=== PATIENT | male | born 1965 | race Caucasian/White ===

== ENCOUNTER → 2024-05-17 08:36 | Outpatient (CLI) | payer OTHER, SELFPAY ==
--- NOTE | 2024-05-17 08:40 | DI.RAD.S_ITS ---
PROCEDURE: XR LUMBAR SPINE MIN 4V INDICATIONS: BACK PAIN TECHNIQUE: 5 views of the lumbar spine acquired, including flexion and extension views. COMPARISON: None. FINDINGS: Lumbar spine curvature and alignment: Grade 1-2 L5-S1 spondylisthesis likely due to chronic spondylitic defects appreciated. There is approximately 1 cm of L5 anterior subluxation. Slight rightward curve lower thoracic and upper lumbar spine appreciated. Bones: Probable L5-S1 spondylolytic defects. They are very poorly visualized. Disc spaces: Mild L2-3 minimal L3-4 L4-5 and moderate L5-S1 degenerative disc disease noted. There is moderate L4-5 and severe L5-S1 degenerative facet disease. Soft tissues: No soft tissue swelling, calcification or mass. IMPRESSION: Grade 1-2 L5-S1 spondylolisthesis with probable spondylitic defects. If this requires precise diagnosis, suggest lumbar CT Multilevel degeneration Dictated by: Lokesh Palacio M.D. on 05/18/2024 at 10:24 Approved by: Lokesh Palacio M.D. on 05/18/2024 at 10:26
== END ==
PROVIDERS: Referring Provider Physical Medicine & Rehabilitation; Visit Provider Physical Medicine & Rehabilitation
DX: M43.17 Spondylolisthesis, lumbosacral region (principal); M47.816 Spondylosis without myelopathy or radiculopathy, lumbar region; M47.817 Spondylosis without myelopathy or radiculopathy, lumbosacral region; M51.379 Other intervertebral disc degeneration, lumbosacral region without mention of lumbar back pain or lower extremity pain; M51.369 Other intervertebral disc degeneration, lumbar region without mention of lumbar back pain or lower extremity pain; M54.9 Dorsalgia, unspecified
CPT/HCPCS: 72110

== ENCOUNTER 2024-06-06 07:59 | Outpatient (CLI) | payer OTHER, SELFPAY ==
[2024-06-06] VITALS (8 sets, daily range): BP systolic 140–175; BP diastolic 81–91; PULSE 92–104; RESP 14–18; TEMP 36.5; O2SAT 94–99
--- NOTE | 2024-06-06 08:01 | DI.RAD.S_ITS ---
PROCEDURE: PAIN L/S TRANSFORAMINAL INJECT INDICATIONS: left L5/S1 TFESI COMPARISON: None. FINDINGS/IMPRESSION: Fluoroscopic spot filming was performed to verify placement of spinal needles at the left L5-S1 level(s), as labeled on the films. Appropriate location(s) of the needle tip(s) was confirmed by injection of iodinated contrast. Approved by: Malou Neal M.D.,Ph.D. on 06/08/2024 at 4:47
[2024-06-06] MEDS: MIDAZOLAM 2 MG/2 ML VIAL IV (08:55)
[2024-06-06] MEDS: DEXAMETHASONE 10 MG/ML VIAL INJ (08:59)
[2024-06-06] MEDS: BUPIVACAINE 0.25% (PF) VIAL 2 ML INJ (08:59)
[2024-06-06] MEDS: BETAMETHASONE 30 MG/5 ML MDV 12 MG INJ (08:59)
[2024-06-06] MEDS: iopamidoL 15 ML VIAL 3 ML INJ (08:59)
--- NOTE | 2024-06-06 09:12 | P.PCN_ITS ---
Date/Time/Diagnoses Date of procedure: 06/06/24 Time of procedure: 09:12 Pre-procedure diagnosis: 1. FORAMINAL STENOSIS WITH LE SYMPTOMS Post-procedure diagnosis: same Procedure Notes Procedure: 1. FLUOROSCOPICALLY GUIDED CONTRAST CONTROLLED TRANSFORAMINAL EPIDURAL STEROID INJECTION - Left L5/S1 Indications: Saul is referred by Dr. Mcdowell for treatment of Foraminal Stenosis with Left LE Symptoms Physician: Samson Black Total Fluoroscopy time (seconds): 9 Total sedation minutes: 12 Complications: none Procedure in detail & Post-procedure care: FINDINGS Foraminal Nerve Root Compression secondary to disc disease and facet hypertrophy DESCRIPTION OF PROCEDURE Following review of allergy and review of potential side effects and complications, including, but not necessarily limited to, infection, allergic reaction, local tissue breakdown, stroke, temporary or permanent nerve injury, paralysis, and possible , the patient indicated that the patient understood and agreed to proceed. An informed consent document was signed by the patient, witnessed by a nurse, and placed in the patient's chart. Additionally, other treatment options including medications, modalities, and physical therapy were reviewed with the patient. After review of previous anaesthesic history and IV conscious sedation the patient was deemed safe to proceed with today?s procedure with IV conscious sedation as ASA class II designation. Safety time-out was performed to confirm patient ID, procedure to be performed and site of procedure. IV sedation was accomplished with a combination of 2mg of Versed was administered by the RN after DO order, titrated to patient comfort during the course of the procedure while the patient remained responsive to all verbal commands In the prone position following sterile prep and drape of the lumbar region, the Left L5/S1 posterior neuroforamen was identified fluoroscopically. The skin was anesthetized via a 25-gauge 1.5-inch needle with 1% lidocaine solution. At this point, a 25-gauge 3.5-inch spinal needle was atraumatically introduced and advanced under fluoroscopic guidance through the posterior Left L5/S1 neuroforamen to approximately the anterior aspect of the canal. Depth was confirmed on lateral view. Following negative aspiration, injection of approximately 1.5 cc of Isovue 200 under live fluoroscopy in the AP view confirmed excellent flow along the nerve root, into the epidural space without vascular or intrathecal uptake observed Radiological data, including multiple fluoroscopic views of the lumbosacral spine, reveal a spinal needle at the Left L5/S1 posterior neuroforamen. Subsequent views show flow of contrast material flowing superiorly and inferiorly along the nerve root confirming epidural flow. Subsequently, a test dose of 1.5 cc of 1% lidocaine solution was administered and patient was observed for two minutes for signs or symptoms of complications, including abdominal pain, shortness of breath, bilateral upper or lower extremity weakness, nausea and vomiting, prior to steroid injection. At this point, a total of 3cc or 10mg of dexamethasone and 12mg of betamethasone was injected without incident. The procedure tolerated the procedure well without signs or symptoms of complications prior to transfer to the recovery area continued monitoring without incident. The patient was then transferred to the recovery area where they were observed for an appropriate time after the injection. The patient reported a VAS score of 7 prior to the procedure and a post-procedure VAS of 0. POST OP INSTRUCTIONS The patient was provided a Pain Log to continue to record their response to the target-specific procedure prior to follow-up visit with their referring phys ician. Additionally, specific post-injection care instructions and a contact number to our office were provided if concerns arise regarding possible complications associated with the procedure are suspected.
== END 2024-06-06 10:11 | disposition home or self-care (01) ==
LOC: RAD 08:00
PROVIDERS: PCP Student in an Organized Health Care Education/Training Program; Referring Provider Physical Medicine & Rehabilitation; Visit Provider Physical Medicine & Rehabilitation
DX: M48.07 Spinal stenosis, lumbosacral region (principal); M51.17 Intervertebral disc disorders with radiculopathy, lumbosacral region; M47.27 Other spondylosis with radiculopathy, lumbosacral region
CPT/HCPCS: 64483; 99152; J0702; J1100; J2250; J3490